=== PATIENT | male | born 1980 | race Hispanic/Latino ===

== ENCOUNTER 2017-11-04 18:57 | Emergency (ER) | payer BC ==
[2017-11-04 19:21] LABS: #Basophils 0.1 thou/uL (0.0-0.2); #Eosinphils 0.2 thou/uL (0.0-0.7); #Lymphocytes 3.4 thou/uL (1.20-3.40); #Monocytes 0.6 thou/uL (0.11-0.59); #Neutrophils 7.6 thou/uL (1.40-6.50); %Basophils 0.8 % (0.0-1.0); %Eosinophils 1.8 % (0.0-10.0); %Lymphocytes 28.3 % (21.0-51.0); %Monocytes 5.1 % (0.0-10.0); %Neutrophils 64.1 % (42.0-75.0); Hemoglobin 15.9 g/dL (14.0-18.0); Mean Corpuscular HGB CONC 35.4 g/dL (32.0-36.0); Mean Corpuscular Hemoglobin 30.4 pg (27.0-31.0); Mean Corpuscular Volume 85.9 fL (78.0-98.0); Platelet Count 299 thou/uL (130-400); RBC Distribution Width 11.2 % (11.5-14.5); Red Blood Cell (RBC) Count 5.21 mill/uL (4.70-6.10); White Blood Cell (WBC) Count 11.9 thou/uL (4.8-10.8)
[2017-11-04 19:36] LABS: ALT (SGPT) 52 U/L (8-55); AST (SGOT) 22 U/L (5-34); Albumin 4.6 g/dL (3.5-5.0); Alkaline Phosphatase 117 U/L (40-150); Anion Gap 13 mmol/L (10-20); BUN (Urea Nitrogen) 10 mg/dL (8.9-20.6); Bilirubin, Total 0.5 mg/dL (0.2-1.2); CK (CPK) 71 U/L (30-200); Calc. Creatinine Clearance 0 mL/min (70-130); Calcium 9.3 mg/dL (7.8-10.44); Carbon Dioxide 27 mmol/L (22-29); Chloride 105 mmol/L (98-107); Estimated GFR-MDRD Greater than 90; Globulin 2.7 g/dL (2.4-3.5); Glucose 98 mg/dL (70-105); Potassium 3.3 mmol/L (3.5-5.1); Protein, Total 7.3 g/dL (6.0-8.3); Sodium 142 mmol/L (136-145)
[2017-11-04 19:37] LABS: CKMB 0.5 ng/mL (0-6.6); Troponin I Less than 0.010 ng/mL (< 0.028)
--- NOTE | 2017-11-04 19:51 | RAD ---
PORTABLE UPRIGHT FRONTAL CHEST RADIOGRAPH 11/04/17 COMPARISON: 09/22/14. HISTORY: Chest pain. FINDINGS: No pneumothorax, pleural fluid, focal consolidation or alveolar edema. Heart and mediastinal contours are unremarkable. IMPRESSION: No acute findings. POS: [facility]
[2017-11-04 22:39] LABS: CKMB 0.4 ng/mL (0-6.6); Troponin I Less than 0.010 ng/mL (< 0.028)
== END 2017-11-04 23:00 | disposition home or self-care (01) ==
LOC: SCSER 18:57
DX: R07.89 Other chest pain (principal)
CPT/HCPCS: 71045; 80053; 82550; 82553; 84484; 85025; 93005

== ENCOUNTER 2020-08-30 09:47 | Day surgery (SDC) | payer BC ==
[2020-08-29 15:48] VITALS: BMI 29.5
[2020-08-30] MEDS ORDERED: Levofloxacin 500 mg/D5W 100 ml Premix Bag ONE (12:14)
[2020-08-30] MEDS ORDERED: Iothalamate Meglumine 60% 50 ML VIAL FS ONE ×2 (12:26→12:35)
[2020-08-30] MEDS ORDERED: Fentanyl 100 MCG/2 ML VIAL ONE (12:29)
[2020-08-30] MEDS ORDERED: Midazolam HCl 2 mg/2 ml Vial ONE (12:29)
[2020-08-30] MEDS ORDERED: ePHEDrine Sulfate 50 MG/10 ML VIAL ONE (12:40)
[2020-08-30] MEDS ORDERED: PROPOFOL 200 MG/20 ML VIAL ONE (12:40)
[2020-08-30] MEDS ORDERED: Ondansetron PF 4 MG/2 ML Vial ONE (12:40)
[2020-08-30] MEDS ORDERED: Ketorolac Tromethamine 30 MG/ML VIAL ONE (12:40)
[2020-08-30] MEDS ORDERED: Lidocaine 1% PF 5 ML VIAL ONE (12:40)
[2020-08-30] MEDS ORDERED: Dexamethasone 20 MG/5 ML VIAL ONE (12:40)
[2020-08-30] MEDS ORDERED: Oxybutynin 5 MG TAB ONE (13:29)
[2020-08-30] MEDS ORDERED: Oxytocin 10 UNITS/ML VIAL ONE (13:29)
[2020-08-30] MEDS ORDERED: Bupivacaine 0.5% 10 ML VIAL ONE (13:29)
[2020-09-05 20:08] LABS: Color Tan (.); Stone Weight 29 mg (.)
== END 2020-08-30 14:55 | disposition home or self-care (01) ==
LOC: SDC 09:47
PROVIDERS: ATTEND Urology
DX: N20.2 Calculus of kidney with calculus of ureter (principal); I10 Essential (primary) hypertension; Z79.899 Other long term (current) drug therapy
CPT/HCPCS: 74420; 82365; 88300; J1100; J1885; J1956; J2250; J2405; J2704; J3010; J3490; Q9961

== ENCOUNTER 2024-05-04 06:41 | Day surgery (SDC) | payer BC ==
[2024-05-03 12:15] VITALS: BMI 33.0
[~2024-05-04 06:41] MED LIST: Fluorouracil 100 MG, Enoxaparin 25 MG, EPINEPHrine 0.3 MG, Dextrose 50% 3 ML in Ophthal... IRR SCH
[2024-05-04] MEDS ORDERED: Cyclopentolate 1% Opth Drop 2 ML BOT ONE (07:06)
[2024-05-04] MEDS ORDERED: PHENYLephrine 2.5% Ophth Soln 15 ml Bottle ONE (07:06)
[2024-05-04] MEDS ORDERED: PROPOFOL 20 ML ONE (08:49)
[2024-05-04] MEDS ORDERED: Rocuronium Bromide 10 MG/ML (10ML VIAL) ONE (08:49)
[2024-05-04] MEDS ORDERED: Ondansetron PF 4 MG/2 ML Vial ONE (08:49)
[2024-05-04] MEDS ORDERED: Metoclopramide HCl 10 MG (2 mL) VIAL ONE (08:49)
[2024-05-04] MEDS ORDERED: fentaNYL 50 mcg/mL 1 mL Vial ONE ×3 (08:49→10:48)
[2024-05-04] MEDS ORDERED: Famotidine/PF 20 mg/2ml Vial ONE (08:58)
[2024-05-04] MEDS ORDERED: Lidocaine 2% PF 5 ML VIAL ONE (08:59)
[2024-05-04] MEDS ORDERED: Lidocaine 4% PF 5 ML AMP ONE (09:56)
[2024-05-04] MEDS ORDERED: Triamcinolone 40 MG/ML VIAL ONE (09:56)
[2024-05-04] MEDS ORDERED: CEFAZOLIN 1 GM VIAL ONE (09:56)
[2024-05-04] MEDS ORDERED: Dextrose 50% Abboject 50 ML SYRINGE ONE (09:56)
[2024-05-04] MEDS ORDERED: Enoxaparin 30 MG (0.3 mL) SYRINGE ONE (09:56)
[2024-05-04] MEDS ORDERED: Lidocaine 1% PF 5 ML VIAL ONE (09:56)
[2024-05-04] MEDS ORDERED: Bupivacaine 0.75% 10 ML VIAL ONE (09:56)
[2024-05-04] MEDS ORDERED: ePHEDrine Sulfate 50 MG/10 ML VIAL ONE (09:56)
[2024-05-04] MEDS ORDERED: SUGAMMADEX SODIUM 200 MG/2 ML VIAL ONE ×2 (09:59→10:11)
[2024-05-04] MEDS ORDERED: HYDROcodone/Acetaminophen 5/325 mg Tablet ONE (11:10)
[2024-05-04] MEDS ORDERED: Ondansetron ODT 4 MG TAB ONE (12:13)
== END 2024-05-04 12:20 | disposition home or self-care (01) ==
LOC: SDC 06:41
PROVIDERS: ATTEND Ophthalmology Retina Specialist
PROC: 08T43ZZ Resection of Right Vitreous, Percutaneous Approach (ICD-10-PCS; principal; 2024-05-04)
DX: H33.021 Retinal detachment with multiple breaks, right eye (principal); G47.30 Sleep apnea, unspecified
CPT/HCPCS: 67025; J0171; J0690; J1650; J2405; J2704; J2765; J3010; J3301; J3490; J7999; J9190; Q0162